=== PATIENT | female | born 1970 | race Asian ===

== ENCOUNTER → 2016-06-19 | Outpatient (CLI) | payer OTHER | LOC: FIMAGING 07:51 | DX: Z12.31 Encounter for screening mammogram for malignant neoplasm of breast (principal) | CPT/HCPCS: G0202 ==

== ENCOUNTER → 2017-07-16 | Outpatient (CLI) | payer OTHER | LOC: FIMAGING 07:40 | PROVIDERS: ATTEND Family Medicine | DX: Z12.31 Encounter for screening mammogram for malignant neoplasm of breast (principal) ==